=== PATIENT | female | born 1990 | race American Indian/Alaskan Native ===

== ENCOUNTER 2020-05-05 12:50 | Emergency (ER) | payer MEDICAID ==
--- NOTE | 2020-05-05 20:36 | Emergency Department Report ---
ED Female HPI - General Chief complaint: Abdominal Pain Stated complaint: ABDOMINAL PAIN 9WKS PREG Time Seen by Provider: 05/05/20 19:39 Source: patient Mode of arrival: Ambulatory Limitations: No Limitations - History of Present Illness Initial comments: 30-year-old morbidly obese -Citizen Of [place] female G4, P3 presents emergency department complaining significant waves of pelvic pain and cramping with no associated vaginal discharge vaginal bleeding or dysuria. States she is 9 weeks but has not seen [facility] but due to see 1 next week. No fever, chills, sweats no chest pain or palpitation no nausea vomiting but had does report some nausea. States the pain has been present for the last 3 days MD Complaint: pelvic pain Location: suprapubic Radiation: non-radiating Severity: mild Quality: dull, aching Consistency: constant Improves with: none Worsens with: none Are you Now?: Yes Associated Symptoms: denies: abdominal pain, nausea/vomiting, loss of appetite, shortness of breath, syncope ED Review of Systems ROS: Stated complaint: ABDOMINAL PAIN 9WKS PREG Other details as noted in HPI Comment: All other systems reviewed and negative ED Past Medical Hx - Past Medical History Hx Asthma: Yes - Surgical History Past Surgical History?: Yes Additional Surgical History: right wrist surgery ED Physical Exam - General Limitations: No Limitations General appearance: alert, in no apparent distress - Head Head exam: Present: atraumatic, normocephalic - Eye Eye exam: Present: normal appearance, PERRL, EOMI Pupils: Present: normal accommodation - ENT ENT exam: Present: normal exam, normal orophraynx, mucous membranes moist - Neck Neck exam: Present: normal inspection - Respiratory Respiratory exam: Present: normal lung sounds bilaterally. Absent: respiratory distress - Cardiovascular Cardiovascular Exam: Present: regular rate, normal rhythm. Absent: systolic murmur, diastolic murmur, rubs, gallop - GI/Abdominal GI/Abdominal exam: Present: soft, normal bowel sounds. Absent: guarding - Extremities Exam Extremities exam: Present: normal inspection - Back Exam Back exam: Present: normal inspection - Neurological Exam Neurological exam: Present: alert, oriented X3 - Psychiatric Psychiatric exam: Present: normal affect, normal mood - Skin Skin exam: Present: warm, dry, intact, normal color. Absent: rash ED Course Vital Signs 05/05/20 12:54 Temperature 98.7 F Pulse Rate 103 H Respiratory 20 Rate Blood Pressure 152/92 [Right] O2 Sat by Pulse 97 Oximetry ED Medical Decision Making - Lab Data Result diagrams: 05/05/20 20:51 Lab Results 05/05/20 05/05/20 Range/Units 20:51 20:51 WBC 10.4 (4.5-11.0) K/mm3 RBC 4.20 (3.65-5.03) M/mm3 Hgb 11.8 (10.1-14.3) gm/dl Hct 35.3 (30.3-42.9) % MCV 84 (79-97) fl MCH 28 (28-32) pg MCHC 33 (30-34) % RDW 16.8 H (13.2-15.2) % Plt Count 276 (140-440) K/mm3 Lymph % (Auto) 23.8 (13.4-35.0) % [place] % (Auto) 8.5 H (0.0-7.3) % Eos % (Auto) 3.1 (0.0-4.3) % Baso % (Auto) 0.4 (0.0-1.8) % Lymph # (Auto) 2.5 (1.2-5.4) K/mm3 [place] # (Auto) 0.9 H (0.0-0.8) K/mm3 Eos # (Auto) 0.3 (0.0-0.4) K/mm3 Baso # (Auto) 0.0 (0.0-0.1) K/mm3 Seg Neutrophils % 64.2 (40.0-70.0) % Seg Neutrophils # 6.7 (1.8-7.7) K/mm3 Blood Type A POSITIVE Ord Rhogam Gestat Weeks <11 WEEKS - Radiology Data Radiology results: report reviewed Ultrasound shows IUP with heart rate of 135 measures to be 7 weeks and 5 days - Medical Decision Making This morbidly obese G7, P4 patient presents with pelvic pain without vaginal bleeding in the first trimester, differential diagnosis includes ectopic , IUP, month threatened/inevitable , along with a completed . Patient is HDS and without a history of coagulopathy or infectious symptoms. The ultrasound does reveal an IUP at 7 weeks and 5 days with a heart rate of 135 Based on exam history and ED work-up patient presentation is not consistent with an ectopic , life-threatening coagulopathy, trauma, serious bacterial infection, central process or other emergency Critical care attestation.: If time is entered above; I have spent that time in minutes in the direct care of this critically ill patient, excluding procedure time. ED Disposition Clinical Impression: Pelvic pain during Disposition: DC-01 TO HOME OR SELFCARE Is pt being admited?: No Does the pt Need Aspirin: No Condition: Stable Instructions: Abdominal Pain (ED), (ED) Additional Instructions: . Please take Tylenol as needed for the pain continue to take your vitamins and keep your [facility] appointment ultrasound shows an IUP at 7 weeks and 5 days with a heart rate of 135 Referrals: [facility] [Provider Group] - 3-5 Days
[2020-05-05 21:04] LABS: Basophils % (Auto) 0.4 % (0.0-1.8); Eosinophils # (Auto) 0.3 K/mm3 (0.0-0.4); Eosinophils % (Auto) 3.1 % (0.0-4.3); Hematocrit 35.3 % (30.3-42.9); Hemoglobin 11.8 gm/dl (10.1-14.3); Lymphocytes # (Auto) 2.5 K/mm3 (1.2-5.4); Lymphocytes % (Auto) 23.8 % (13.4-35.0); Mean Corpuscular HGB Conc 33 % (30-34); Mean Corpuscular Volume 84 fl (79-97); Monocytes # (Auto) 0.9 K/mm3 (0.0-0.8); Monocytes % (Auto) 8.5 % (0.0-7.3); Platelet Count 276 K/mm3 (140-440); Red Cell Distribution Width 16.8 % (13.2-15.2)
[2020-05-05 21:37] VITALS: BP 146/84
--- NOTE | 2020-05-05 21:40 | Ultrasound Report ---
ULTRASOUND OBSTETRIC INDICATION / CLINICAL INFORMATION: pelvic pain and . Clinical Gestational Age (GA): 9.2 weeks.days TECHNIQUE: Transabdominal and Transvaginal. COMPARISON: None available. FINDINGS: GESTATIONAL SAC: Well-defined oval shape and intrauterine in location. The gestational sac measures 2 .9 cm in length, corresponding to a gestational age of 8 weeks, 0 days. YOLK SAC: No significant abnormality. EMBRYO/FETUS: No significant abnormality. - [place]-Rump Length = 1.1 cm = 7.2 weeks.days - Heart Rate, beats per minute (if present) = 135 UTERUS: The uterus measures 10.4 x 5.5 x 7.0 cm and is normal in echogenicity. ADNEXA: The right ovary measures 3.2 x 2.1 x 3.4 cm and is normal in echogenicity. There is a 1.6 cm anechoic cyst arising from the right ovary. The left ovary measures 3.5 x 2.3 x 2.9 cm and is normal in echogenicity. There is normal Doppler flow to both ovaries. FREE FLUID: None. ADDITIONAL FINDINGS: None. IMPRESSION: 1. Single, living intrauterine with estimated sonographic age of 7.5 weeks.days. 2. 1.6 cm simple right ovarian cyst. Signer Name: Declan Randolph MD Signed: 05/05/2020 9:35 PM Workstation Name: [id number]
--- NOTE | 2020-05-06 06:40 | Ultrasound Report ---
US OB <= 14 weeks fetus INDICATION / CLINICAL INFORMATION: Vaginal bleeding pain. COMPARISON: None available. FINDINGS: Intrauterine is seen. [place]-rump length is 11 mm, 7 weeks 2 days. heart rate is 135. There is a 1.6 and a right ovarian cyst. Ovaries are otherwise unremarkable. IMPRESSION: 1. Single viable intrauterine with sonographic gestational age of 7 weeks, 5 days. Signer Name: Tavo Miller MD Signed: 05/06/2020 6:35 AM Workstation Name: [email or web address]
== END 2020-05-05 21:36 | disposition home or self-care (01) ==
LOC: ED 12:50
DX: O26.891 Other specified pregnancy related conditions, first trimester (principal); O99.511 Diseases of the respiratory system complicating pregnancy, first trimester; R10.2 Pelvic and perineal pain; J45.909 Unspecified asthma, uncomplicated; Z98.890 Other specified postprocedural states; Z3A.09 9 weeks gestation of pregnancy
CPT/HCPCS: 36415; 76801; 76817; 84702; 85025; 86900; 86901